=== PATIENT | female | born 1950 | race Caucasian/White ===

== ENCOUNTER 2017-08-10 17:07 | Inpatient (IN) | payer OTHER, MEDICAID ==
[2017-08-10] MEDS ORDERED: Sodium Chloride 0.9% 1,000 ML IV ONE (17:23)
[2017-08-10 17:54] LABS: % BASOPHILS 0.9 % (0.0-2.0); % EOSINOPHILS 1.5 % (0.0-5.0); % LYMPHOCYTES 20.7 % (20.0-50.0); % MONOCYTES 6.6 % (2.0-10.0); % NEUTROPHILS 70.3 % (40.0-80.0); BASOPHILE ABSOLUTE 0.1 Th/cumm (0-0.2); EOSINOPHILE ABSOLUTE 0.1 Th/cmm (0.1-0.4); HEMATOCRIT 41.2 % (41.0-60); LYMPHOCYTE ABSOLUTE 1.9 Th/cmm (1.5-3.0); MEAN CELL VOLUME 90.2 fl (81-100); MEAN CORPUSCULAR HEMOGLOBIN 30.7 pg (27.0-31.0); MEAN PLATELET VOLUME 7.7 fl; MONOCYTE ABSOLUTE 0.6 Th/cmm (0.3-1.0); NEUTROPHILE ABSOLUTE 6.4 Th/cmm (1.8-8.0); PLATELET COUNT 303 Th/cmm (150-400); RED BLOOD COUNT 4.56 Mil/cmm (3.80-5.20); RED CELL DISTRIBUTION WIDTH 12.6 % (11.5-20.0); WHITE BLOOD COUNT 9.1 Th/cmm (4.8-10.8)
--- NOTE | 2017-08-10 18:09 | ED Physician Chart ---
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 Pain, A/N/V/D/C , fever, chills, or urinary s/s; pt's last tetanus shot: < 5 years; UTD Allergies:: Allergies Allergy/AdvReac Type Severity Reaction Status Date / Time No Known Allergies Allergy Verified 08/10/17 17:37 Vitals:: Vital Signs - 8 hr 08/10/17 17:39 Temp 97.8 F HR 90 RR 16 BP 175/88 O2 Sat % 95 Historian:: Patient, Family Member Review:: Nurse's Note Reviewed ED Review of Systems - Review of Systems General/Constitutional: No fever, No chills, No weight loss, Weakness, No diaphoresis, No edema, No loss of appetite Skin: No skin lesions, No rash, No bruising Head: No headache, No light-headedness Eyes: No loss of vision, No pain, No diplopia ENT: No earache, No nasal drainage, No sore throat, No tinnitus Neck: No neck pain, No swelling, No thyromegaly, No stiffness, No mass noted Cardio Vascular: No chest pain, No palpitations, No PND, No orthopnea, No edema Pulmonary: No SOB, No cough, No sputum, No wheezing GI: No nausea, No vomiting, No diarrhea, No pain, No melena, No hematochezia, No constipation, No hematemesis G/U: No dysuria, No frequency, No hematuria, No nacturia 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, No abnormal vaginal bleed, No contraction Musculoskeletal: No bone or joint pain, No back pain, No muscle pain Endocrine: No polyuria, No polydipsia Psychiatric: No prior psych history, No depression, No anxiety, No suicidal ideation, No homicidal ideation, No auditory hallucination, No visual hallucination Hematopoietic: No bruising, No lymphadenopathy Allergic/Immuno: No urticaria, No angioedema Neurological: Syncope, No focal symptoms, Weakness, No paresthesia, Headache, No seizure, Dizziness, No confusion, Vertigo ED Past Medical History - Past Medical History Obtainable: Yes Past Medical History: HTN, DM, Dyslipidemia Family History: Diabetes Melitus, HTN Social History: Non Smoker, No Alcohol, No Drug Use, Surgical History: None Psychiatricy History: None Medication: Reviewed Family Medical History - Family Member Mother History Unknown: Yes ED Physical Exam - Physical Examination General/Constitutional: Awake, Well-developed, well-nourished, Alert, No distress, GCS 15, Non-toxic appearing, Ambulatory Other Head comments:: + Occipital Scalp Contusion Eyes: Lids, conjuctiva normal, PERRL, EOMI Skin: Nl inspection, No rash, No skin lesions, No ecchymosis, Well hydrated, No lymphadenopathy ENMT: External ears, nose nl, Nasal exam nl, Lips, teeth, gums nl Neck: Nontender, Full ROM w/o pain, No JVD, No nuchal rigidity, No bruit, No mass, No stridor Respiratory: Nl effort/Exclusion, Clear to Auscultation, No Wheeze/Rhonchi/Rales Cardio Vascular: RRR, No murmur, gallop, rubs, NL S1 S2, Carotid/Femoral/Distal pulses equal bilaterally GI: No tenderness/rebounding/guarding, No organomegaly, No hernia, Normal BS's, Nondistended, No mass/bruits, No McBurney tenderness : No CVA tenderness Extremities: No tenderness or effusion, Full ROM, normal strength in all extremities, No edema, Normal digits & nails Neuro/Psych: Alert/oriented, DTR's symmetric, Normal sensory exam, Normal motor strength, Judgement/insight normal, Mood normal, Normal gait, No focal deficits Misc: Normal back, No paraspinal tenderness ED Labs/Radiology/EKG Results - Lab Results Results: Laboratory Tests 08/10/17 17:44 WBC 9.1 RBC 4.56 Hgb 14.0 Hct 41.2 MCV 90.2 MCH 30.7 MCHC Differential 34.0 RDW 12.6 Plt Count 303 MPV 7.7 Neutrophils % 70.3 Lymphocytes % 20.7 Monocytes % 6.6 Eosinophils % 1.5 Basophils % 0.9 Comments:: Na+: 135; K+: 3.1; BUN: 28; Glucose: 377 - Radiology Results Comments:: + Sinusitis; DJD Changes - EKG Interpretations EKG Time:: 17:29 Rate & Rhythm: 90; NSR Comments:: old ND; non-specific st-t changes ED Septic Shock - . Is Septic Shock (SBP<90, OR Lactate>4 mmol\L) present?: No - <6hrs of presentation: Vital Signs: Vital Signs - 8 hr 08/10/17 17:39 Temp 97.8 F HR 90 RR 16 BP 175/88 O2 Sat % 95 ED Reassessment (Disposition) - Reassessment Reassessment Condition:: Improved - Diagnosis Diagnosis:: Syncope; Fall; Sinusitis; Hyponatremia; Hypokalemia; Dehydration; Hyperglycemia ; Uncontrolled DM; HTN; Scalp Contusion - Aftercare/Follow up Instructions Aftercare/Follow-Up Instructions:: Counseled pt regarding lab results/diagnosis & need follow up, Counseled pt & family regarding lab results/diagnosis & need follow up - Patient Disposition Discharge/Transfer:: Acute Care w/in this hosp Accepting Physician:: Dr. Christianson Time Called:: 1899 Time Responded:: 19:00 Admitted to:: Telemetry Spoke to:: Dr. Christianson Admitting Medical Physician:: Dr. Christianson Condition at Disposition:: Stable, Improved
[2017-08-10 18:10] LABS: INR 0.94 (0.5-1.4); PROTHROMBIN TIME (TEST) 9.8 SECONDS (9.5-11.5)
[2017-08-10 18:42] LABS: ALB/GLOB RATIO 1.9 (1.0-1.8); ALBUMIN 4.3 gm/dL (3.7-5.3); ALKALINE PHOSPHATASE 75 U/L (34-104); AMYLASE SERUM 54 U/L (29-103); BILIRUBIN,TOTAL 0.4 mg/dL (0.3-1.0); BUN - UREA NITROGEN 28 mg/dL (7-25); CALCIUM SERUM 9.4 mg/dL (8.6-10.3); CARBON DIOXIDE 26.1 mEq/L (21.0-31.0); CHLORIDE 100 mEq/L (98-107); CHOLESTEROL 191 mg/dL (<200); CREATININE - SERUM 0.6 mg/dL (0.6-1.2); CREATININE KINASE 104 U/L (30-223); GFR AFRICAN-AMERICAN > 60.0 ml/min (>90); GFR NON AFRICAN-AMERICAN > 60.0 ml/min; GLUCOSE 377 mg/dL (70-105); HDL -HIGH DENSITY LIPOPROTEIN 41 mg/dL (23-92); LIPASE 26 U/L (11-82); POTASSIUM SERUM 3.1 mEq/L (3.5-5.1); SGOT 13 U/L (13-39); SGPT/ALT 17 U/L (7-52); SODIUM SERUM 135 mEq/L (136-145); TOTAL PROTEIN,SERUM 6.6 gm/dL (6.0-8.3); TRIGLYCERIDES 156 mg/dL (<150)
[2017-08-10] MEDS ORDERED: Potassium Chloride 20 mEq ER Tab PO ONE ×2 (19:06→19:29)
[2017-08-10] MEDS ORDERED: INSULIN HUMAN REGULAR 100 UNITS/ML UNIT IV ONE (19:06)
[2017-08-10] MEDS ORDERED: INSULIN HUMAN REGULAR 100 UNITS/ML UNIT ONE (19:30)
[2017-08-10] MEDS ORDERED: cefTRIAXone 1 GM in Sodium Chloride 0.9% 50 ML IV ONE (20:08)
--- NOTE | 2017-08-11 01:32 | History & Physical ---
ADMIT DATE: 08/10/2017 The patient was admitted for syncopal episode. HISTORY OF PRESENT ILLNESS: The patient is a ____ syncopal episode resulting in a fall ending in head trauma. No history of neck pain, no chest pain, no cough, no expectoration, no other problem. The patient was seen in the Emergency Room, was evaluated. The patient's family member and the patient were historian. Nurses' notes were reviewed. REVIEW OF SYSTEMS: Negative. PAST MEDICAL HISTORY: The patient has a history of hypertension, diabetes and hyperlipidemia. PHYSICAL EXAMINATION: GENERAL: Alert and oriented female patient. VITAL SIGNS: Noted. HEAD: Normal. ENT: Normal. NECK: Supple, nontender. LUNGS: Clear. CARDIOVASCULAR SYSTEM: S1 and S2 heard. ABDOMEN: Soft. Bowel sounds are heard. CENTRAL NERVOUS SYSTEM: Grossly normal. LABORATORY DATA: Potassium is 3.1, BUN of 28, creatinine was little high, blood sugar was 377, sodium was 135, hyponatremia. Old ____ changes and ST-T changes on the EKG. DIAGNOSES: Syncopal episode, rule out cardiac arrhythmia, hyponatremia, sinusitis, hypokalemia, dehydration, hyperglycemia, uncontrolled hypertension, history of scalp contusion, history of diabetes and history of hypertension. PLAN: The patient is going to be admitted. I will go ahead and do a cardiac workup and I will follow the patient. JOB# [id number]
[2017-08-11 03:47] VITALS: BP 156/72
--- NOTE | 2017-08-11 07:50 | Diagnostic Imaging Report ---
CHEST X-RAY: AP view INDICATION: pain COMPARISON: None FINDINGS: Chronic lung changes are noted. Left basal subsegmental atelectasis versus scarring is noted. No evidence of pneumothorax. There is no focal consolidation or pleural effusions The heart is normal in size. Atherosclerosis of the aortic arch is noted. Degenerative changes of the spine are noted. IMPRESSION: No focal airspace consolidation identified. Left basal subsegmental atelectasis versus scarring is noted. Atherosclerotic vascular disease.
--- NOTE | 2017-08-11 08:02 | Diagnostic Imaging Report ---
Head CT without intravenous contrast Indication: Trauma Comparison: None Technique: Axial images were obtained from the vertex to the skull base without IV contrast. Coronal reconstructions were made. Total DLP: 623, CTDI32 FINDINGS: Images of the brain obtained without contrast demonstrate no evidence of an acute hemorrhage. 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 Mild white matter disease is noted. The ventricles and basal cisterns are patent. No mass effect or midline shift. No evidence of a skull fracture or focal soft tissue swelling. The visualized paranasal sinuses demonstrate mucosal thickening. IMPRESSION: No evidence of an acute intracranial hemorrhage. Mild supratentorial white matter disease which is nonspecific and may be due to chronic microvessel ischemia. Mucosal thickening of paranasal sinuses. 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
--- NOTE | 2017-08-11 08:06 | General Progress Note ---
Subjective - Review of Systems Events since last encounter: s/p syncope s/p head trauma Objective - Results Result Diagrams: 08/10/17 17:44 08/10/17 17:44 Recent Labs: Laboratory Last Values WBC 9.1 Th/cmm (4.8-10.8) 08/10/17 17:44 RBC 4.56 Mil/cmm (3.80-5.20) 08/10/17 17:44 Hgb 14.0 gm/dL (12-16) 08/10/17 17:44 Hct 41.2 % (41.0-60) 08/10/17 17:44 MCV 90.2 fl (81-100) 08/10/17 17:44 MCH 30.7 pg (27.0-31.0) 08/10/17 17:44 MCHC Differential 34.0 pg (28.0-36.0) 08/10/17 17:44 RDW 12.6 % (11.5-20.0) 08/10/17 17:44 Plt Count 303 Th/cmm (150-400) 08/10/17 17:44 MPV 7.7 fl 08/10/17 17:44 Neutrophils % 70.3 % (40.0-80.0) 08/10/17 17:44 Lymphocytes % 20.7 % (20.0-50.0) 08/10/17 17:44 Monocytes % 6.6 % (2.0-10.0) 08/10/17 17:44 Eosinophils % 1.5 % (0.0-5.0) 08/10/17 17:44 Basophils % 0.9 % (0.0-2.0) 08/10/17 17:44 PT 9.8 SECONDS (9.5-11.5) 08/10/17 17:44 INR 0.94 (0.5-1.4) 08/10/17 17:44 Sodium 135 mEq/L (136-145) L 08/10/17 17:44 Potassium 3.1 mEq/L (3.5-5.1) L 08/10/17 17:44 Chloride 100 mEq/L (98-107) 08/10/17 17:44 Carbon Dioxide 26.1 mEq/L (21.0-31.0) 06/13/18 17:44 Anion Gap 12.0 (7.0-16.0) 08/10/17 17:44 BUN 28 mg/dL (7-25) H 08/10/17 17:44 Creatinine 0.6 mg/dL (0.6-1.2) 08/10/17 17:44 Est GFR ( Amer) > 60.0 ml/min (>90) 08/10/17 17:44 Est GFR (Non-Af Amer) > 60.0 ml/min 08/10/17 17:44 BUN/Creatinine Ratio 46.7 08/10/17 17:44 Glucose 377 mg/dL (70-105) H 08/10/17 17:44 POC Glucose 278 MG/DL (70 - 105) H 08/11/17 06:19 Hemoglobin A1c % 11.0 % (4.0-6.0) H 08/10/17 21:12 Calcium 9.4 mg/dL (8.6-10.3) 08/10/17 17:44 Total Bilirubin 0.4 mg/dL (0.3-1.0) 08/10/17 17:44 AST 13 U/L (13-39) 08/10/17 17:44 ALT 17 U/L (7-52) 08/10/17 17:44 Alkaline Phosphatase 75 U/L (34-104) 08/10/17 17:44 Creatine Kinase 104 U/L (30-223) 08/10/17 17:44 Troponin I < 0.01 ng/mL (0.01-0.05) L 08/10/17 17:44 B-Natriuretic Peptide 47.7 pg/mL (5.0-100.0) 08/10/17 17:44 Total Protein 6.6 gm/dL (6.0-8.3) 08/10/17 17:44 Albumin 4.3 gm/dL (3.7-5.3) 08/10/17 17:44 Globulin 2.3 gm/dL 08/10/17 17:44 Albumin/Globulin Ratio 1.9 (1.0-1.8) H 08/10/17 17:44 Triglycerides 156 mg/dL (<150) H 08/10/17 17:44 Cholesterol 191 mg/dL (<200) 08/10/17 17:44 LDL Cholesterol Direct 126 mg/dL (75-193) 08/10/17 17:44 HDL Cholesterol 41 mg/dL (23-92) 08/10/17 17:44 Amylase 54 U/L (29-103) 08/10/17 17:44 Lipase 26 U/L (11-82) 08/10/17 17:44 - Physical Exam Vitals and I&O: Vital Signs Temp 98.9 F 08/11/17 08:00 Pulse 80 08/11/17 08:00 Resp 18 08/11/17 08:00 BP 152/92 08/11/17 08:00 Pulse Ox 95 08/11/17 08:00 Intake & Output 08/10/17 08/11/17 08/11/17 18:59 06:59 18:59 Intake Total 511.667 Balance 511.667 Weight (lbs) 43.091 kg 43.091 kg Intake: Intake, IV Amount 311.667 Sodium Chloride 0.9% 1, 211.667 000 ml @ 100 mls/hr IV . Q10H ONE Rx#:[id number] cefTRIAXone 1 gm In 50 Sodium Chloride 0.9% 50 ml @ 100 mls/hr IV X1 ONE Rx#:[id number] Oral 200 Other: # Voids 2 # Bowel Movements 0 Stool Characteristics Soft Formed Weight Source Patient stated Bedscale Active Medications: Current Medications Insulin Aspart (Novolog Insulin Sliding Scale) 0 units SUBQ ACHS [facility]; Protocol Stop: 10/10/17 07:29 Metformin HCl (Glucophage) 500 mg PO DAILY [facility] Stop: 10/10/17 08:59 Assessment/Plan - Problem List Patient Problems: All Active Problems S/P FALL WITH OCCIPITAL TRAUMA (Acute)
--- NOTE | 2017-08-11 08:10 | Diagnostic Imaging Report ---
CT cervical spine without IV contrast HISTORY: Trauma COMPARISON: None Technique: Axial images were obtained from the skull base to the upper thoracic spine without IV contrast. Multiplanar reconstructions were made. Total DLP: 264, CTDI 16 FINDINGS: Images of the cervical spine obtained without contrast demonstrate no evidence of an acute fracture. There is straightening of the cervical lordosis. Multilevel moderate to advanced degenerative changes are seen with multilevel disc space loss of height most pronounced at C5/C6, C6/C7, and T1/T2. There is 2 mm anterolisthesis of C3 on C4 and C7 on T1 likely due to facet arthropathy. Multilevel advanced facet degenerative changes are noted. No prevertebral soft tissue swelling. 9 mm hypodense nodule is seen within the right lower thyroid gland. IMPRESSION: No evidence of acute fracture or subluxation. Multilevel moderate to advanced degenerative changes. 2 mm anterolisthesis of C3 on C4 and C7 on T1 likely underlying facet arthropathy. 9 mm Hypodense Right thyroid nodule. Ultrasound would further clarify.
[2017-08-11] MEDS ORDERED: Potassium Chloride 20 mEq ER Tab PO ONE (09:15)
[2017-08-11] MEDS: INSULIN ASPART SLIDING SCALE 100 UNITS/ML UNIT SUBQ SCH ×4 (09:24→21:22)
[2017-08-11] MEDS: Insulin Detemir 100 units/mL 10mL Vial SUBQ SCH ×2 (17:34→18:00)
--- NOTE | 2017-08-11 23:04 | Consultation ---
DATE OF CONSULTATION: 08/11/[address] Christianson. HISTORY OF PRESENT ILLNESS: This is a 67-year-old female patient who was trying to sit in the chair. Following this, the patient had a fall and injured the head with some laceration and the patient was seen in the Emergency Room and the patient is admitted. PAST MEDICAL HISTORY: Hypertension, diabetes, and hyperlipidemia. FAMILY HISTORY: Unremarkable. SOCIAL HISTORY: No history of smoking, alcohol abuse. ALLERGIES: None. PHYSICAL EXAMINATION: VITAL SIGNS: Blood pressure 150/80, pulse 70, and respirations 20. HEAD: The patient has laceration. EYES: Pupils equal, reactive to light. Fundi show AV nicking, sclerae white, conjunctivae pink. NECK: Carotid 2+. Normal upstroke. JVD flat. Thyroid not palpable. Lymph nodes not palpable. CHEST: Shows increased AP diameter. No kyphosis, scoliosis. LUNGS: Bilateral bronchovesicular breath sounds. HEART: PMI fifth intercostal space with lateral to midclavicular line. S1, S2. No S3, S4, soft systolic murmur. ABDOMEN: Soft. Liver, spleen not palpable. No organomegaly. Bowel sounds active. NEUROLOGIC: No focal neurological deficit. EXTREMITIES: Peripheral pulses 2+. No pedal edema. CLINICAL IMPRESSION: Head injury, CT scan negative; syncopal episode; hypokalemia; hyponatremia; diabetes mellitus type 2 uncontrolled; and hypertension uncontrolled. PLAN: Admit the patient. We will monitor the patient closely, get CT scan. JOB# [id number]
[2017-08-12 06:36] LABS: ANION GAP 8.9 (7.0-16.0); BUN - UREA NITROGEN 23 mg/dL (7-25); CALCIUM SERUM 9.3 mg/dL (8.6-10.3); CARBON DIOXIDE 25.8 mEq/L (21.0-31.0); CHLORIDE 103 mEq/L (98-107); CREATININE - SERUM 0.5 mg/dL (0.6-1.2); GFR AFRICAN-AMERICAN > 60.0 ml/min (>90); GFR NON AFRICAN-AMERICAN > 60.0 ml/min; GLUCOSE 292 mg/dL (70-105); MAGNESIUM 2.2 mg/dL (1.9-2.7); POTASSIUM SERUM 3.7 mEq/L (3.5-5.1); SODIUM SERUM 134 mEq/L (136-145)
--- NOTE | 2017-08-12 07:55 | Consultation ---
DATE OF CONSULTATION: 08/11/2017 ATTENDING: Sridevi Christianson M.D. REASON FOR CONSULTATION: Electrolyte imbalance, prerenal azotemia, and for fluid management. HISTORY OF PRESENT ILLNESS: This is a 67-year-old female with past medical history of essential hypertension, who came in because of acute loss of consciousness. A few hours prior to admission, the patient suddenly became lightheaded when she stood up and tried to walk. She had a syncopal episode for few seconds and strucked out occipital portion of her scalp. She denied any fever/chills, nausea and vomiting, diarrhea, blurring of vision, no earache. She then proceeded to the Emergency Room. Head CT was negative for acute intracerebral hemorrhage, presence of white matter disease secondary to chronic microvessel disease. Cervical CT revealed no acute fracture or subluxation, levels of moderate DJD in C3 on C4, C7 on T1 facet arthropathy. Her chest x-ray revealed no acute disease. Her potassium was 3.1 with a BUN/creatinine of 28/0.6. PAST MEDICAL HISTORY: 1. Type 2 diabetes mellitus. 2. Essential hypertension. CURRENT MEDICATIONS: She is currently on clonidine, hydralazine, detemir, metformin, tramadol. ALLERGIES: No known drug allergies. SOCIAL HISTORY: No history of alcohol or tobacco use. 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 FAMILY HISTORY: Significant for diabetes. REVIEW OF SYSTEMS: GENERAL: She denied any fever/chills, appetite had been fair. HEENT: She now complaints of headache in the occipital portion of her scalp, she developed dizziness/lightheadedness. No blurring of vision, earache, no toothache. CHEST AND CVS: There is no chest pain, palpitations, diaphoresis, or cough. GASTROINTESTINAL: No nausea and vomiting, abdominal pain or cramping, hematemesis, melena, hematochezia, nor diarrhea. ENDOCRINE: She has a history of diabetes. MUSCULOSKELETAL: Presence of arthralgias. HEMATOLOGIC: No history of anemia. NEUROPSYCH: She has a history of syncopal episode, no diabetic neuropathy. PHYSICAL EXAMINATION: GENERAL: The patient is alert, ambulating, still complaining of headache involving the occipital area. VITAL SIGNS: Her blood pressure is 105/56, pulse 70, temperature 97.6 degrees. SKIN: Poor turgor, warm, no rash, no jaundice appreciated. HEENT: Head: Normocephalic, but however, she does complain of pain especially on palpation, occipital area. NECK: Supple, no adenopathy, no thyromegaly, no bruits. Trachea palpated in the midline. Mouth is moist mucosa with adequate dentition. CHEST AND CVS: S1, S2. No rub, murmur, nor gallop appreciated. Point of maximal impulse fifth intercostal space, left midclavicular line. No abdominal or femoral bruits appreciated. LUNGS: Equal expansion. No use of accessory muscles. No supraclavicular retractions. Decreased breath sounds, clear to auscultation without any wheeze. BREASTS: Symmetrical without any discharge. ABDOMEN: Globular, soft, positive for bowel sounds. No bruits either diastolic or systolic. RECTAL: Lax sphincter tone. GENITOURINARY: Normal appearing female genitalia. MUSCULOSKELETAL: No effusions present in her joints with adequate range of motion. EXTREMITIES: No evidence of edema, cyanosis, nor clubbing with palpable femoral, popliteal, and dorsalis pedis pulses. NEUROLOGIC: The patient is alert, verbal, motor is 5/5. Cranial nerves 3-12 intact. Sensory intact. LABORATORY DATA: White count 9.1, hemoglobin 14, hematocrit 41.2, platelets 303, polys 70.3%. Sodium 135, potassium 3.5, chloride 100, bicarbonate 26, BUN 28, creatinine 0.8, glucose [phone]. Hemoglobin A1c 11%. IMPRESSION: 1. Syncopal episode, possibly orthostatic hypotension with sudden drop of her blood pressure, rule out any cardioneurogenic pathology, medication-induced. 2. Hypokalemia. 3. Acute kidney injury in the form of prerenal azotemia. 4. Dehydration. 5. Type 2 diabetes mellitus. 6. Essential hypertension. PLAN: 1. Replace potassium. 2. Encourage p.o. fluid intake. 3. Monitor blood pressure. 4. Achieve better control of blood sugar. JOB# [id number]
[2017-08-12] MEDS: Insulin Detemir 100 units/mL 10mL Vial SUBQ SCH (08:17)
[2017-08-12] MEDS: INSULIN ASPART SLIDING SCALE 100 UNITS/ML UNIT SUBQ SCH ×2 (08:18→12:15)
--- NOTE | 2017-08-12 14:34 | General Progress Note ---
Subjective - Review of Systems Service Date: 08/12/17 Subjective: alert, ambulating Objective - Results Result Diagrams: 08/10/17 17:44 08/12/17 05:45 Recent Labs: Laboratory Last Values WBC 9.1 Th/cmm (4.8-10.8) 08/10/17 17:44 RBC 4.56 Mil/cmm (3.80-5.20) 08/10/17 17:44 Hgb 14.0 gm/dL (12-16) 08/10/17 17:44 Hct 41.2 % (41.0-60) 08/10/17 17:44 MCV 90.2 fl (81-100) 08/10/17 17:44 MCH 30.7 pg (27.0-31.0) 08/10/17 17:44 MCHC Differential 34.0 pg (28.0-36.0) 08/10/17 17:44 RDW 12.6 % (11.5-20.0) 08/10/17 17:44 Plt Count 303 Th/cmm (150-400) 08/10/17 17:44 MPV 7.7 fl 08/10/17 17:44 Neutrophils % 70.3 % (40.0-80.0) 08/10/17 17:44 Lymphocytes % 20.7 % (20.0-50.0) 08/10/17 17:44 Monocytes % 6.6 % (2.0-10.0) 08/10/17 17:44 Eosinophils % 1.5 % (0.0-5.0) 08/10/17 17:44 Basophils % 0.9 % (0.0-2.0) 08/10/17 17:44 PT 9.8 SECONDS (9.5-11.5) 08/10/17 17:44 INR 0.94 (0.5-1.4) 08/10/17 17:44 Sodium 134 mEq/L (136-145) L 08/12/17 05:45 Potassium 3.7 mEq/L (3.5-5.1) 08/12/17 05:45 Chloride 103 mEq/L (98-107) 08/12/17 05:45 Carbon Dioxide 25.8 mEq/L (21.0-31.0) 08/12/17 05:45 Anion Gap 8.9 (7.0-16.0) 08/12/17 05:45 BUN 23 mg/dL (7-25) 08/12/17 05:45 Creatinine 0.5 mg/dL (0.6-1.2) L 08/12/17 05:45 Est GFR ( Amer) > 60.0 ml/min (>90) 08/12/17 05:45 Est GFR (Non-Af Amer) > 60.0 ml/min 08/12/17 05:45 BUN/Creatinine Ratio 46.0 08/12/17 05:45 Glucose 292 mg/dL (70-105) H 08/12/17 05:45 POC Glucose 339 MG/DL (70 - 105) H 08/12/17 11:16 Hemoglobin A1c % 11.0 % (4.0-6.0) H 08/10/17 21:12 Calcium 9.3 mg/dL (8.6-10.3) 08/12/17 05:45 Magnesium 2.2 mg/dL (1.9-2.7) 08/12/17 05:45 Total Bilirubin 0.4 mg/dL (0.3-1.0) 08/10/17 17:44 AST 13 U/L (13-39) 08/10/17 17:44 ALT 17 U/L (7-52) 08/10/17 17:44 Alkaline Phosphatase 75 U/L (34-104) 08/10/17 17:44 Creatine Kinase 104 U/L (30-223) 08/10/17 17:44 Troponin I < 0.01 ng/mL (0.01-0.05) L 08/10/17 17:44 B-Natriuretic Peptide 47.7 pg/mL (5.0-100.0) 08/10/17 17:44 Total Protein 6.6 gm/dL (6.0-8.3) 08/10/17 17:44 Albumin 4.3 gm/dL (3.7-5.3) 08/10/17 17:44 Globulin 2.3 gm/dL 08/10/17 17:44 Albumin/Globulin Ratio 1.9 (1.0-1.8) H 08/10/17 17:44 Triglycerides 156 mg/dL (<150) H 08/10/17 17:44 Cholesterol 191 mg/dL (<200) 08/10/17 17:44 LDL Cholesterol Direct 126 mg/dL (75-193) 08/10/17 17:44 HDL Cholesterol 41 mg/dL (23-92) 08/10/17 17:44 Amylase 54 U/L (29-103) 08/10/17 17:44 Lipase 26 U/L (11-82) 08/10/17 17:44 TSH 1.54 uIU/ml (0.34-5.60) 08/12/17 05:45 - Physical Exam Vitals and I&O: Vital Signs Temp 97.0 F 08/12/17 13:31 Pulse 73 08/12/17 13:31 Resp 19 08/12/17 13:31 BP 159/83 08/12/17 13:31 Pulse Ox 97 08/12/17 13:31 Intake & Output 08/11/17 08/12/17 08/12/17 18:59 06:59 18:59 Intake Total 200 600 Output Total 1 Balance -1 200 600 Weight (lbs) 43.091 kg 66.134 kg 66.134 kg Intake: Oral 200 600 Output: Stool 1 Other: # Voids 3 4 2 # Bowel Movements 0 Stool Characteristics Soft Soft Weight Source Estimated Bedscale Bedscale General: Alert, No acute distress HEENT: Atraumatic, Mucous membr. moist/pink Neck: Supple, +2 carotid pulse wo bruit Cardiovascular: Regular rate, Normal S1, Normal S2 Lungs: Clear to auscultation Abdomen: Bowel sounds, Soft Extremities: no Edema Neurological: Sensation intact Skin: no Rash Psych/Mental Status: Mood NL Assessment/Plan - Assessment Assessment: Syncopal episode Hypokalemia Pre renal azotemia T2DM Ess Htn - Plan Plan: Lab - Result Diagrams 08/10/17 17:44 08/12/17 05:45 electrolytes improved no further syncopal episode BP stable Nutritional Asmnt/Malnutr-PDOC - Dietary Evaluation Malnutrition Findings (Please click <Entered> for more info): Nutritional Asmnt/Malnutrition Start: 08/11/17 17: 16 Text: Status: Complete Freq: Protocol: Document 08/11/17 17:16 [email or web address] (Rec: 08/11/17 17:25 [email or web address]) Nutritional Asmnt/Malnutrition Patient General Information Nutritional Screening High Risk Diagnosis syncope Pertinent Medical Hx/Surgical Hx HTN, DM, hyperlipidemia Subjective Information pt seen lying in bed at time of visit, awake and alert. Pt is Kazakh speaking, understands few Cymraes. Per EMR, PO intake 100% of breakfast. Current Diet Order/ Nutrition Support [facility] Pertinent Medications novolog, levemir, glucophage Pertinent Labs 08/10 Na 135, K 3.1, BUN 28, glucose 377, POC 271, A1c 11 08/11 POC 278-329 Nutritional Hx/Data Height 1.55 m Height (Calculated Centimeters) 154.9 Current Weight (lbs) 43.091 kg Weight (Calculated Kilograms) 43.1 Weight (Calculated Grams) 60462.3 Wallace Body Weight 105 Body Mass Index (BMI) 17.9 Weight Status Underweight GI Symptoms GI Symptoms None Last BM not indicated Difficult in: None Skin Integrity/Comment: laceration: BACK OF HEAD=OPEN TO AIR Estimated Nutritional Goals BEE in Kcals: Using Current wt Calories/Kcals/Kg 30-35 Kcals Calculated 5627-5081 Protein: Using Current wt Protein g/k-1.2 Protein Calculated 43-52 Fluid: ml 1290-1505ml (1ml/kcal) Nutritional Problem 1. Problem Problem altered nutrition relatedl labs Etiology hx of DM Signs/Symptoms: glucose 377, POC 271, A1c 11 Malnutrition Alert Is there a minimum of two criteria No selected? Query Text:Check all the applicable criteria. A minimum of two criteria are recommended for diagnosis of either severe or non-severe malnutrition. Malnutrition Related to Morbid Obesity Malnutrition related to morbid obesity No Intervention/Recommendation Comments 1. Continue with [facility] diet as ordered. 2. Monitor PO intake, wt, labs and skin integrity 3. F/U as moderate risk in 3- days, 08/14-08/16, PO check 08/13 Expected Outcomes/Goals Expected Outcomes/Goals 1. PO intake to meet at least 75% of nutritional needs. 2. Wt stability, skin to remain intact, labs to approach WNL.
--- NOTE | 2017-08-15 10:31 | Cardiology ---
08/12/[address] Christianson. M-MODE ECHOCARDIOGRAM: Mitral valve, anterior leaflet of mitral valve shows normal excursion, EF velocity. Posterior leaflet of the mitral valve shows normal excursion. Left ventricular posterior wall shows increased thickness, normal excursion. Interventricular septum shows increased thickness, normal excursion, hypertrophy of the left ventricle, ejection fraction 50%. Left atrium normal. Aortic root shows normal dimension, normal excursion of aortic leaflets. CONCLUSION: Hypertrophy of the left ventricle, ejection fraction 55%. 2D ECHO: Long axis view showed normal sized left ventricle with hypertrophy of the left ventricle. Left atrium normal. Aortic root shows normal dimension, normal excursion of aortic leaflets. Short axis view of mitral valve normal. Short axis view of aortic valve normal. Apical four chamber view showed normal-sized left ventricle, left atrium, right ventricle, right atrium, tricuspid and mitral valve. Ejection fraction 60%. CONCLUSION: Normal 2D echo, ejection fraction 60%. Doppler study showed trace mitral regurgitation, trace pulmonary regurgitation. [facility]# [id number]
== END 2017-08-12 13:57 | disposition home or self-care (01) | DRG 314 ==
LOC: ER 17:07 → TELE 20:22
PROVIDERS: ADMIT Internal Medicine; ATTEND Internal Medicine
DX: I95.9 Hypotension, unspecified (principal); E11.00 Type 2 diabetes mellitus with hyperosmolarity without nonketotic hyperglycemic-hyperosmolar coma (NKHHC); G93.40 Encephalopathy, unspecified; N17.9 Acute kidney failure, unspecified; E87.1 Hypo-osmolality and hyponatremia; R55 Syncope and collapse; J32.9 Chronic sinusitis, unspecified; E87.6 Hypokalemia; E86.0 Dehydration; E11.65 Type 2 diabetes mellitus with hyperglycemia; W18.39XA Other fall on same level, initial encounter; I10 Essential (primary) hypertension; S00.03XA Contusion of scalp, initial encounter; Z91.81 History of falling; Y93.89 Activity, other specified; Y92.89 Other specified places as the place of occurrence of the external cause; Y99.8 Other external cause status; Z83.3 Family history of diabetes mellitus
CPT/HCPCS: 36415-UA; 70450-TC; 71045-TC; 72125-TC; 80048-TC; 80053-TC; 80061-TC; 82150-TC; 82550-TC; 82948-90; 83036-90; 83690-TC; 83735-TC; 83880-TC; 84443-TC; 84484-TC; 85025-TC; 85610-TC; 93005; 94760; 96374; 96375; J0696; J1815; J2405; J7030; Z7610